=== PATIENT | female | born 1955 | race Caucasian/White ===

== ENCOUNTER 2022-12-22 18:51 | Emergency (ER) | payer OTHER, MEDICARE ==
[2022-12-22 19:09] LABS: #Basophils 0.1 thou/uL (0.0-0.2); #Eosinphils 0.5 thou/uL (0.0-0.7); #Lymphocytes 1.6 thou/uL (1.20-3.40); #Monocytes 0.7 thou/uL (0.11-0.59); #Neutrophils 3.9 thou/uL (1.40-6.50); %Basophils 0.9 % (0.0-1.0); %Eosinophils 7.2 % (0.0-10.0); %Lymphocytes 23.2 % (21.0-51.0); %Monocytes 10.5 % (0.0-10.0); Hemoglobin 13.3 g/dL (12.0-16.0); Mean Corpuscular HGB CONC 33.7 g/dL (32.0-36.0); Mean Corpuscular Hemoglobin 31.9 pg (27.0-31.0); Mean Corpuscular Volume 94.6 fl (78.0-98.0); Mean Platelet Volume 6.5 fL (7.4-10.4); Platelet Count 405 10x3/uL (130-400); RBC Distribution Width 11.2 % (11.5-14.5); Red Blood Cell (RBC) Count 4.18 mill/uL (4.20-5.40); White Blood Cell (WBC) Count 6.8 10x3/uL (4.8-10.8)
[2022-12-22 19:16] LABS: Prothrombin Time 13.5 sec (12.0-14.7)
[2022-12-22 19:27] LABS: ALT (SGPT) 18 U/L (8-55); AST (SGOT) 16 U/L (5-34); Alcohol Less than 10.0 mg/dL (Less than 10); Alkaline Phosphatase 80 U/L (40-110); Anion Gap 13 mmol/L (10-20); BUN (Urea Nitrogen) 9 mg/dL (9.8-20.1); Bilirubin, Total 0.4 mg/dL (0.2-1.2); Calc. Creatinine Clearance 0 mL/min (70-130); Calcium 9.3 mg/dL (7.8-10.44); Carbon Dioxide 25 mmol/L (23-31); Chloride 105 mmol/L (98-107); Estimated GFR 91; Globulin 2.4 g/dL (2.4-3.5); Glucose 86 mg/dL (80-115); Lipase 23 U/L (8-78); Potassium 4.2 mmol/L (3.5-5.1); Protein, Total 6.4 g/dL (5.8-8.1); Sodium 139 mmol/L (136-145)
[2022-12-22 19:35] LABS: Bilirubin Negative (Negative); Blood, Urine Negative (Negative); Glucose, Urine (Dipstick) Negative (Negative); Ketone, Urine Negative (Negative); Leukocyte Small (Negative); Nitrite Negative (Negative); Protein, Urine (Dipstick) Negative (Neg-Trace); Specific Gravity, Urine 1.015 (1.005-1.030); Urobilinogen 0.2 mg/dL (Less than 2)
[2022-12-22 19:37] LABS: Clarity Hazy (Clear)
[2022-12-22 19:43] LABS: Bacteria/HPF 3+ HPF (None Seen); CAUTI Indications for Culture Pelvic or flank pain; RBC/HPF None Seen HPF (0-3); Squamous Epithelial 0-3 HPF (0-3)
[2022-12-22 19:44] LABS: Urine Culture Reflex Yes Yes
== END 2022-12-22 20:47 | disposition home or self-care (01) ==
LOC: MADERS 18:51
DX: S76.012A Strain of muscle, fascia and tendon of left hip, initial encounter (principal); R82.90 Unspecified abnormal findings in urine; V49.50XA Passenger injured in collision with unspecified motor vehicles in traffic accident, initial encounter
CPT/HCPCS: 72170; 80053; 80307; 81001; 83690; 85025; 85610; 87077; 87086; 87186